=== PATIENT | male | born 1975 | race African-American/Black ===

== ENCOUNTER 2016-11-20 01:08 | Emergency (ER) | payer SELFPAY ==
[2016-11-20 01:32] VITALS: BP 128/81
--- NOTE | 2016-11-21 14:00 | EKG REPORT ---
SEVERITY:- ABNORMAL ECG - SINUS RHYTHM LEFT VENTRICULAR HYPERTROPHY NONSPECIFIC ST-T CHANGES- INFERIOR LEADS : Confirmed by: Avi Bennett MD 21-Nov-2016 13:59:16
== END 2016-11-20 04:33 | disposition left against medical advice (07) ==
LOC: ER 01:08
DX: Z53.21 Procedure and treatment not carried out due to patient leaving prior to being seen by health care provider (principal)
CPT/HCPCS: 93005; 93010

== ENCOUNTER 2016-12-05 18:18 | Emergency (ER) | payer MEDICAID ==
--- NOTE | 2016-12-05 18:59 | ER Document Report ---
ED Medical Screen (RME) - General Chief Complaint: Head Injury with LOC Stated Complaint: FALL HEAD PAIN Mode of Arrival: Wheelchair Information source: Patient, Relative Notes: This is a 41-year-old -[place] male who presents for complaint of head trauma and loss of consciousness. Patient and family state that he was outside playing catch with his son when he tripped and fell hitting the left side of his forehead against the concrete porch. Family reports a brief loss of consciousness. This occurred about 45 minutes ago. He has had no nausea and vomiting. However family states that he is acting abnormally and talking about "monkeys" and acting confused. He denies being on any blood thinners for about 6 months. Previously he was on blood thinners for PE. He is alert and conversant. He is oriented to person and place however he states the date is 2015. Pupils are equal round reactive to light bilaterally. I have greeted and performed a rapid initial assessment of this patient. A comprehensive ED assessment and evaluation of the patient, analysis of test results and completion of the medical decision making process will be conducted by additional ED providers. TRAVEL OUTSIDE OF THE [place] IN LAST 30 DAYS: No - Related Data Allergies/Adverse Reactions: aspirin [Aspirin] Allergy (Verified 04/09/14 22:26) codeine [Codeine] Allergy (Verified 04/09/14 22:26) Past Medical History Renal/ Medical History: Denies: Hx Peritoneal Dialysis Malignancy Medical History: Reports Hx Leukemia Psychiatric Medical History: Denies: Hx Depression - Immunizations Hx Diphtheria, Pertussis, Tetanus Vaccination: Yes Physical Exam - Vital signs Vitals: Temp Pulse Resp BP Pulse Ox 98.5 F 94 20 131/87 H 97 12/05/16 18:22 12/05/16 18:22 12/05/16 18:22 12/05/16 18:22 12/05/16 18:22 Course - Vital Signs Vital signs: Temp Pulse Resp BP Pulse Ox 98.5 F 94 20 131/87 H 97 12/05/16 18:22 12/05/16 18:22 12/05/16 18:22 12/05/16 18:22 12/05/16 18:22
[2016-12-05] MEDS ORDERED: ACETAMINOPHEN 325 MG TABLET PO ONE (19:40)
--- NOTE | 2016-12-05 19:43 | ER Document Report ---
ED Head/Face/Scalp Injury - General Chief Complaint: Head Injury with LOC Stated Complaint: FALL HEAD PAIN Time seen by provider: 19:20 Mode of Arrival: Wheelchair Notes: Patient is a 41-year-old male that comes emergency department for chief complaint of head injury, he states that he tried to catch a football and fell forward, hitting his head on a concrete step outside. He states he was knocked out, family states that when he awoke he was talking strangely about monkeys and seemed confused, patient was oriented by the time he reached triage, patient has had a CAT scan of the head by triage. Patient reports pain in the area where he hit his head with a mild headache, states he had nausea but this resolved, denies vomiting. Patient denies neck pain, back pain, chest pain, abdominal pain, or any other injuries. Patient states he is currently on low- dose metformin for type II diabetes, states he has been on blood thinners in the past for a pulmonary embolism but was stopped over 6 months ago. TRAVEL OUTSIDE OF THE [place] IN LAST 30 DAYS: No - Related Data Allergies/Adverse Reactions: aspirin [Aspirin] Allergy (Verified 04/09/14 22:26) codeine [Codeine] Allergy (Verified 04/09/14 22:26) Past Medical History - General Information source: Patient, Relative - Social History Smoking Status: Never Smoker Frequency of alcohol use: None Drug Abuse: None Lives with: Family Family History: Reviewed & Not Pertinent Endocrine Medical History: Reports: Hx Diabetes Mellitus Type 2 Renal/ Medical History: Denies: Hx Peritoneal Dialysis Malignancy Medical History: Reports Hx Leukemia Psychiatric Medical History: Denies: Hx Depression Surgical Hx: Negative - Immunizations Immunizations up to date: Yes Hx Diphtheria, Pertussis, Tetanus Vaccination: Yes Review of Systems - Review of Systems Constitutional: No symptoms reported EENT: No symptoms reported Cardiovascular: No symptoms reported Respiratory: No symptoms reported Gastrointestinal: No symptoms reported Genitourinary: No symptoms reported Male Genitourinary: No symptoms reported Musculoskeletal: See HPI Skin: No symptoms reported Hematologic/Lymphatic: No symptoms reported Neurological/Psychological: See HPI Physical Exam - Vital signs Vitals: Temp Pulse Resp BP Pulse Ox 98.5 F 94 20 131/87 H 97 12/05/16 18:22 12/05/16 18:22 12/05/16 18:22 12/05/16 18:22 12/05/16 18:22 Interpretation: Normal - General General appearance: Appears well, Alert In distress: None - Patient sitting up in the bed, well-appearing, alert - HEENT Head: Normocephalic, Other - Circular 2 x 2 centimeter hematoma on the left upper forehead near the hairline Eyes: Normal Conjunctiva: Normal Extraocular movements intact: Yes Eyelashes: Normal Pupils: PERRL Ears: Normal External canal: Normal Tympanic membrane: Normal Sinus: Normal Nasal: Normal Mouth/Lips: Normal Mucous membranes: Normal Pharynx: Normal Neck: Normal - Respiratory Respiratory status: No respiratory distress Chest status: Nontender Breath sounds: Normal. No: Decreased air movement, Wheezing Chest palpation: Normal - Cardiovascular Rhythm: Regular. No: Tachycardia Heart sounds: Normal auscultation, S1 appreciated, S2 appreciated Murmur: No - Abdominal Inspection: Normal Distension: No distension Bowel sounds: Normal Tenderness: Nontender Organomegaly: No organomegaly - Back Back: Normal, Nontender. No: Tender, Vertebra tenderness - No midline tenderness, no palpable tenderness over the back, no saddle anesthesia, moves all extremities without difficulty, normal distal neurovascular exam - Extremities General upper extremity: Normal inspection, Nontender, Normal color, Normal ROM , Normal temperature General lower extremity: Normal inspection, Nontender, Normal color, Normal ROM , Normal temperature, Normal weight bearing. 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 Patient has a hematoma over the left upper frontal area, no midline cervical tenderness, no neurological deficits, is alert and well-appearing. CAT scan of the head negative for any acute findings, shows some maxillary sinus disease, no evidence of intracranial hemorrhage or skull fracture. Patient with no sinus complaints. Patient reevaluated and remains unchanged in his examination except for some developed soreness in the left trapezius muscular area, still has normal spinal exam. He is requesting to go home. He is fully oriented, has no neurological deficits, has negative CAT scan of the head. I discussed in detail head injury precautions, postconcussive syndrome, return precautions, discussed this with both patient and family members, they state understanding and agreement. - Vital Signs Vital signs: Temp Pulse Resp BP Pulse Ox 98.5 F 89 18 116/80 97 12/05/16 18:22 12/05/16 21:48 12/05/16 21:48 12/05/16 21:48 12/05/16 18:22 Discharge - Discharge Clinical Impression: Head injury Qualifiers: Encounter type: initial encounter Qualified Code(s): S09.90XA - Unspecified injury of head, initial encounter Scalp hematoma Qualifiers: Encounter type: initial encounter Qualified Code(s): S00.03XA - Contusion of scalp, initial encounter Condition: Stable Disposition: HOME, SELF-CARE Additional Instructions: CAT scan shows no abnormalities. Neurological exam is normal now. Symptoms and injury to indicate he had a concussion, see postconcussive syndrome details below. Please monitor him and perform head injury precautions as listed below. You will likely develop some soreness, take the muscle relaxer if needed. Follow-up with primary care. Return to emergency department for any concerning symptoms. Head Injury Precautions At this point, there is no evidence that your head injury is serious. Observation is necessary, however. Take only clear liquids for the first few hours, unless told otherwise by the doctor. If no pain medication was prescribed, you may take acetaminophen according to the directions on the bottle. Do not take any medication that may alter your level of alertness (unless you've discussed it with the doctor first) . Limit activity for the first 24 hours. Bed rest is best. During the first 24 hours, check to see approximately every two to three hours that the patient is easily arousable, responds normally, and can perform common tasks such as walking without difficulty. Contact your doctor or go to the hospital if any of the following things occur: Persistent vomiting, difficulty in arousing the patient, worsening or continued headache, or failure to improve as expected. Head injuries can cause symptoms that persist for a few days or even a few weeks. Post-Concussion Syndrome Post-concussion syndrome often follows a mild head injury. Dizziness, mild nausea, mild headache, trouble concentrating, and a general sense of "not being right" may persist for a week or two. This is a frequent complication of concussion. However, if the symptoms worsen, or new symptoms develop, you should be re-examined by the physician. There is no specific cure for post-concussion syndrome. You can take mild pain medication such as ibuprofen or acetaminophen. While you should not drive if you are dizzy, you can get back to your regular activities as quickly as the symptoms will allow. And while vigorous exercise may worsen the headache, mild physical activity often is helpful. Sitting and thinking about your symptoms will worsen them. If difficulties continue, you may need referral for special therapy to help you regain full mental function. Call the physician if you are worsening, or if symptoms are still present in one week. Report any new symptoms immediately. Prescriptions: Methocarbamol [Robaxin 750 mg Tablet] 750 mg PO Q6 #20 tablet Forms: Return to Work Referrals: MICHAEL MCCORMACK, [Primary Care Provider] - Follow up as needed
[2016-12-05 21:50] VITALS: BP 116/80
== END 2016-12-05 21:47 | disposition home or self-care (01) ==
LOC: ER 18:18
DX: S09.90XA Unspecified injury of head, initial encounter (principal); S00.03XA Contusion of scalp, initial encounter; W18.30XA Fall on same level, unspecified, initial encounter; Y93.61 Activity, american tackle football; E11.9 Type 2 diabetes mellitus without complications; Z88.6 Allergy status to analgesic agent; Z79.01 Long term (current) use of anticoagulants; Z79.84 Long term (current) use of oral hypoglycemic drugs
CPT/HCPCS: 99283; 70450; J3490

== ENCOUNTER 2017-02-24 21:58 | Emergency (ER) | payer MEDICAID ==
[2017-02-24 22:50] LABS: ABSOLUTE BASOPHILS # (AUTO) 0.1 10^3/uL (0.0-0.2); ABSOLUTE EOSINOPHILS # (AUTO) 0.1 10^3/uL (0.0-0.6); ABSOLUTE LYMPHOCYTES (AUTO) 2.7 10^3/uL (0.5-4.7); ABSOLUTE MONOCYTES (AUTO) 0.5 10^3/uL (0.1-1.4); BASOPHILS % (AUTO) 0.8 % (0-2); EOSINOPHILS % (AUTO) 1.8 % (0-6); HEMATOCRIT 47.4 % (37.9-51.0); HEMOGLOBIN 15.3 g/dL (13.5-17.0); HGB HCT DIFFERENCE -1.5; LYMPHOCYTES % (AUTO) 42.3 % (13-45); MEAN CORPUSCULAR HEMOGLOBIN 29.1 pg (27.0-33.4); MEAN CORPUSCULAR HGB CONC 32.4 g/dL (32.0-36.0); MEAN CORPUSCULAR VOLUME 90 fl (80-97); RED BLOOD COUNT 5.27 10^6/uL (4.35-5.55); SEGMENTED NEUTROPHILS % (AUTO) 47.1 % (42-78); WHITE BLOOD COUNT 6.5 10^3/uL (4.0-10.5)
--- NOTE | 2017-02-24 22:59 | RADIOLOGY REPORT (SQ) ---
EXAM DESCRIPTION: CHEST PA/LAT COMPLETED DATE/TIME: 02/24/2017 10:47 pm REASON FOR STUDY: chest pain COMPARISON: 2013 TECHNIQUE: Frontal and lateral radiographic views of the chest acquired. NUMBER OF VIEWS: Two view. LIMITATIONS: None. FINDINGS: LUNGS AND PLEURA: No opacities, masses or pneumothorax. No pleural effusion. MEDIASTINUM AND HILAR STRUCTURES: No masses or contour abnormalities. HEART AND VASCULAR STRUCTURES: Heart normal size. No evidence for failure. BONES: No acute findings. HARDWARE: None in the chest. OTHER: No other significant finding. IMPRESSION: NO SIGNIFICANT RADIOGRAPHIC FINDING IN THE CHEST. TECHNICAL DOCUMENTATION: JOB ID: [id number] [employer]- All Rights Reserved
[2017-02-24 23:28] LABS: APPEARANCE,URINE CLEAR; BILIRUBIN,URINE NEGATIVE (NEGATIVE); GLUCOSE, URINE >=500 mg/dL (NEGATIVE); KETONES,URINE NEGATIVE (NEGATIVE); LEUKOCYTE ESTERASE,URINE NEGATIVE (NEGATIVE); NITRITE,URINE NEGATIVE (NEGATIVE); PROTEIN,URINE NEGATIVE (NEGATIVE); URINE SPECIFIC GRAVITY 1.031; UROBILINOGEN,URINE NEGATIVE mg/dL (<2.0)
[2017-02-25 00:01] LABS: ALANINE AMINOTRANSFERASE 31 U/L (21-72); ALBUMIN 3.7 g/dL (3.5-5.0); ALKALINE PHOSPHATASE 94 U/L (38-126); ANION GAP 10 (5-19); ASPARTATE AMINO TRANSFERASE 9 U/L (17-59); BILIRUBIN,DIRECT 0.3 mg/dL (0.0-0.4); BILIRUBIN,TOTAL 0.4 mg/dL (0.2-1.3); BLOOD UREA NITROGEN 14 mg/dL (7-20); CALCIUM 9.2 mg/dL (8.4-10.2); CARBON DIOXIDE 25 mmol/L (22-30); CHLORIDE 99 mmol/L (98-107); CREATININE RESULT 0.86 mg/dL (0.52-1.25); POTASSIUM 4.8 mmol/L (3.6-5.0); SODIUM 134.1 mmol/L (137-145); TOTAL PROTEIN 6.6 g/dL (6.3-8.2)
[2017-02-25 00:07] LABS: GLUCOSE 551 mg/dL (75-110)
[2017-02-25] MEDS ORDERED: INSULIN REG, HUMAN 100 UNIT/ML 3 ML VIAL (PYX) IV ONE (00:14)
[2017-02-25] MEDS ORDERED: NORMAL SALINE 1000 ML 1,000 ML IV ONE (00:15)
--- NOTE | 2017-02-25 00:17 | ER Document Report ---
ED General - General Chief Complaint: Flank Pain Stated Complaint: FLANK PAIN Time Seen by Provider: 02/24/17 23:48 Notes: Patient is a 41-year-old male with past medical history of insulin-dependent type 2 diabetes, prior history of a pulmonary embolus not currently on anticoagulation who presents with 4 hours of pleuritic chest pain. Does describe the pain as being located over his lower right ribs, worsened by deep inspiration. Pain is a severe, stabbing pain. Nothing improves the pain. Notes that movement also worsens the pain. States this feels similar to when he had a pulmonary embolus in the past. He has not seen his primary care doctor regarding today's concerns. He denies any associated shortness of breath , hemoptysis, or syncope. Also notes that he has not taken any of his medications today. He denies any anterior chest wall pain, focal abdominal pain dysuria or distinct CVA tenderness. TRAVEL OUTSIDE OF THE [place] IN LAST 30 DAYS: No - Related Data Allergies/Adverse Reactions: aspirin [Aspirin] Allergy (Verified 04/09/14 22:26) codeine [Codeine] Allergy (Verified 04/09/14 22:26) Past Medical History - General Information source: Patient - Social History Smoking Status: Former Smoker Frequency of alcohol use: None Drug Abuse: None Lives with: Spouse/Significant other Family History: Reviewed & Not Pertinent Patient has suicidal ideation: No Patient has homicidal ideation: No Endocrine Medical History: Reports: Hx Diabetes Mellitus Type 2 Renal/ Medical History: Denies: Hx Peritoneal Dialysis Malignancy Medical History: Reports Hx Leukemia Psychiatric Medical History: Denies: Hx Depression - Immunizations Immunizations up to date: Yes Hx Diphtheria, Pertussis, Tetanus Vaccination: Yes Review of Systems - Review of Systems Notes: Constitutional: Negative for fever. HENT: Negative for sore throat. Eyes: Negative for visual changes. Cardiovascular: Negative for chest pain. Respiratory: Negative for shortness of breath. Positive for pleuritic pain Gastrointestinal: Negative for abdominal pain, vomiting or diarrhea. Genitourinary: Negative for dysuria. Musculoskeletal: Negative for back pain. Skin: Negative for rash. Neurological: Negative for headaches, weakness or numbness. 10 point ROS negative except as marked above and in HPI. Physical Exam - Vital signs Vitals: Temp Pulse Resp BP Pulse Ox 98.2 F 85 24 H 146/85 H 98 02/24/17 22:19 02/24/17 22:19 02/24/17 22:19 02/24/17 22:19 02/24/17 22:19 Interpretation: Tachypneic Notes: PHYSICAL EXAMINATION: GENERAL: Well-appearing, well-nourished and in no acute distress. HEAD: Atraumatic, normocephalic. EYES: Pupils equal round and reactive to light, extraocular movements intact, sclera anicteric, conjunctiva are normal. ENT: nares patent, oropharynx clear without exudates. Moist mucous membranes. NECK: Normal range of motion, supple without lymphadenopathy LUNGS: Breath sounds clear to auscultation bilaterally and equal. No wheezes rales or rhonchi. HEART: Regular rate and rhythm without murmurs ABDOMEN: Soft, nontender, normoactive bowel sounds. No guarding, no rebound. No masses appreciated. EXTREMITIES: Normal range of motion, no pitting or edema. No cyanosis. NEUROLOGICAL: No focal neurological deficits. Moves all extremities spontaneously and on command. PSYCH: Normal mood, normal affect. SKIN: Warm, Dry, normal turgor, no rashes or lesions noted. Course - Re-evaluation Re-evalutation: 02/25/17 00:16 Patient presents with pleuritic left-sided chest pain without any significant tachycardia or shortness of breath. He does have a history of a pulmonary embolus in 2014 is currently off anticoagulation. Patient does not have any distinct left flank pain and his urinalysis unremarkable. Do not suspect an acute nephrolithiasis given his reported history. Patient does state "this is exactly when I had a PE in the past". Will proceed with CTA of the chest has patient's initial well score is greater than 5 and a d-dimer would not be sufficient to exclude a PE. Patient's also severely hyperglycemic without evidence of DKA or HH SM laboratories. Patient admits to very poor compliance with his insulin regimen. Will send hemoglobin A1c and administer 10 units of IV insulin as well as some IV fluids. 02/25/17 02:22 CT of the chest is normal without any evidence of acute pulmonary embolus. Patient pain is improved after receiving Toradol and a Lidoderm patch. Suspect likely musculoskeletal irritation based on exam and reproducible nature of the pain without any evidence of acute PE or aortic dissection on CTA. I discussed at length with the patient his elevated A1c and the need for glucose control as an outpatient. At this time will discharge with return precautions and follow- up recommendations. Verbal discharge instructions given a the bedside and opportunity for questions given. Medication warnings reviewed. Patient is in agreement with this plan and has verbalized understanding of return precautions and the need for primary care follow-up in the next 24-72 hours. - Vital Signs Vital signs: Temp Pulse Resp BP Pulse Ox 98.2 F 85 16 127/89 H 94 02/24/17 22:19 02/24/17 22:19 02/24/17 23:31 02/24/17 23:31 02/24/17 23:31 - Laboratory Result Diagrams: 02/24/17 22:40 02/24/17 23:40 Laboratory results interpreted by me: 02/24/17 02/24/17 02/24/17 22:40 22:40 23:10 Plt Count 126 L Sodium Glucose Hemoglobin A1c % 10.6 H AST Urine Glucose (UA) >=500 H Urine Blood SMALL H 02/24/17 23:40 Plt Count Sodium 134.1 L Glucose 551 H* Hemoglobin A1c % AST 9 L Urine Glucose (UA) Urine Blood - Diagnostic Test Radiology reviewed: Image reviewed, Reports reviewed Radiology results interpreted by me: 02/25/17 02:50 Chest x-ray: No acute infiltrate or pneumothorax - EKG Interpretation by Me Additional EKG results interpreted by me: 02/25/17 02:51 Normal sinus rhythm. Rate 69. No ST elevations or depressions. QTC is 386. Discharge - Discharge Clinical Impression: Pleurodynia, Chest wall pain, Hyperglycemia Condition: Good Disposition: HOME, SELF-CARE Additional Instructions: Your pain is likely related to the muscles of your chest wall. Your CT scan is normal today. For your pain you can use ibuprofen 600 mg every 6 hours as needed. You may also apply heat to the area and purchase topical lidocaine over -the-counter to apply to the area. Please return if you have worsening of this pain, shortness of breath, pass out, or begin coughing blood. You need to followup urgently with your primary care doctor as your blood sugars were dangerously high today. You did not have any evidence of a dangerous condition associated with these blood sugars at this time. However, it is very important that you get your blood sugars under control. Please take all of your medications exactly as directed. You should avoid foods that are high in carbohydrates and sugary foods. Losing weight will also help to better control your blood sugars. Please return to emergency department immediately if you develop weakness, persistent vomiting, confusion, or any other symptoms that are concerning to you. Referrals: MICHAEL MCCORMACK, DO [Primary Care Provider] - Follow up as needed
--- NOTE | 2017-02-25 01:11 | RADIOLOGY REPORT (SQ) ---
EXAM DESCRIPTION: CTA CHEST COMPLETED DATE/TIME: 02/25/2017 12:52 am REASON FOR STUDY: Chest pain. COMPARISON: Chest x-ray 02/24/2017. TECHNIQUE: CT scan of the chest performed using helical scanning technique with dynamic intravenous contrast injection. Images reviewed with lung, soft tissue and bone windows. Reconstructed coronal and sagittal MPR images reviewed. Additional 3 dimensional post-processing performed to develop Maximal Intensity Projection images (DC P). All images stored on PACS. All CT scanners at this facility use dose modulation, iterative reconstruction, and/or weight based d osing when appropriate to reduce radiation dose to as low as reasonably achievable (ALARA). [facility]: Dose Right [facility]: CareDose [facility]: Dose Right [facility]: Teradose 4D [facility]: Elixir [employer] CONTRAST TYPE AND DOSE: contrast/concentration: Isovue 370.00 mg/ml; Total Contrast Delivered: 81.0 ml; Total Saline Delivered: 110.1 ml RENAL FUNCTION: Creatinine 0.86 RADIATION DOSE: Up-to-date CT equipment and radiation dose reduction techniques were employed. CTDIv ol: 16.5 - 24.2 mGy. DLP: 965 mGy-cm. . LIMITATIONS: None. FINDINGS: LUNGS AND PLEURA: No consolidation, pneumothorax or pleural effusion. AORTA AND GREAT VESSELS: No thoracic aortic aneurysm. HEART: No pericardial effusion. PULMONARY ARTERIES: No emboli visualized in the main pulmonary arteries or the segmental branches. HILAR AND MEDIASTINAL STRUCTURES: No identified masses or abnormal nodes. HARDWARE: None in the chest. UPPER ABDOMEN: No significant findings. Limited exam. BONES: No acute findings. 3D MIPS: Confirm above findings. IMPRESSION: No pulmonary emboli. TECHNICAL DOCUMENTATION: JOB ID: [id number] [facility] Quality ID # [id number]: Final reports with documentation of one or more dose reduction techniques (e.g., Au tomated exposure control, adjustment of the mA and/or kV according to patient size, use of iterative reconstruction technique) 2010 [employer]- All Rights Reserved
[2017-02-25] MEDS ORDERED: LIDOCAINE 5% (700 MG) TRANSDERMAL ADH..PATCH TP ONE (02:19)
[2017-02-25] MEDS ORDERED: KETOROLAC TROMETHAMINE INJ/PF 30 MG/1 ML SDV IV ONE (02:21)
[2017-02-25 03:02] VITALS: BP 122/78
--- NOTE | 2017-02-25 07:18 | EKG REPORT ---
SEVERITY:- ABNORMAL ECG - SINUS RHYTHM LEFT VENTRICULAR HYPERTROPHY ST ELEV, PROBABLE NORMAL EARLY REPOL PATTERN : Confirmed by: Camila Roberts 25-Feb-2017 07:18:06
== END 2017-02-25 02:55 | disposition home or self-care (01) ==
LOC: ER 21:58
DX: E11.65 Type 2 diabetes mellitus with hyperglycemia (principal); R07.81 Pleurodynia; R07.89 Other chest pain; R10.9 Unspecified abdominal pain; Z79.4 Long term (current) use of insulin; Z87.891 Personal history of nicotine dependence
CPT/HCPCS: 93005; 99285; 96361; 96374; 36415; 82962; 85025; 80053; 81001; 83036; 71020; 71275; 93010; J1885; J3490; J1815; J7030

== ENCOUNTER 2017-04-23 16:00 | Emergency (ER) | payer OTHER, MEDICAID ==
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
[2017-04-23 18:25] VITALS: BP 119/75
== END 2017-04-23 18:25 | disposition home or self-care (01) ==
LOC: ER 16:00
DX: M54.9 Dorsalgia, unspecified (principal); M54.2 Cervicalgia; V86.04XA Driver of military vehicle injured in traffic accident, initial encounter; F17.210 Nicotine dependence, cigarettes, uncomplicated; E11.9 Type 2 diabetes mellitus without complications
CPT/HCPCS: 99283; 72125; L0120

== ENCOUNTER 2019-01-18 02:11 | Emergency (ER) | payer MEDICAID ==
[2019-01-18 02:18] VITALS: BP 148/89
== END 2019-01-18 03:07 | disposition left against medical advice (07) ==
LOC: ER 02:11
DX: Z53.21 Procedure and treatment not carried out due to patient leaving prior to being seen by health care provider (principal)

== ENCOUNTER 2019-01-18 11:00 | Emergency (ER) | payer OTHER ==
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
[2019-01-18] MEDS ORDERED: KETOROLAC TROMETHAMINE 60 MG/2 ML SDV IM ONE (12:28)
[2019-01-18] MEDS ORDERED: OXYCODONE HCL IR 5 MG TABLET PO ONE (12:28)
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
[2019-01-18 13:09] VITALS: BP 151/96
== END 2019-01-18 13:08 | disposition home or self-care (01) ==
LOC: ER 11:00
DX: S16.1XXA Strain of muscle, fascia and tendon at neck level, initial encounter (principal); S39.012A Strain of muscle, fascia and tendon of lower back, initial encounter; M54.2 Cervicalgia; V54.5XXA Driver of pick-up truck or van injured in collision with heavy transport vehicle or bus in traffic accident, initial encounter; M62.830 Muscle spasm of back; E11.9 Type 2 diabetes mellitus without complications; Z87.891 Personal history of nicotine dependence
CPT/HCPCS: 99284; 96372; 72110; 70450; 72125; J1885

== ENCOUNTER 2020-07-18 04:11 | Emergency (ER) | payer SELFPAY ==
[2020-07-18 04:59] LABS: ABSOLUTE EOSINOPHILS # (AUTO) 0.2 10^3/uL (0.0-0.6); ABSOLUTE LYMPHOCYTES (AUTO) 2.1 10^3/uL (0.5-4.7); ABSOLUTE MONOCYTES (AUTO) 0.7 10^3/uL (0.1-1.4); BASOPHILS % (AUTO) 0.8 % (0-2); EOSINOPHILS % (AUTO) 3.1 % (0-6); HEMATOCRIT 41.1 % (37.9-51.0); HEMOGLOBIN 13.9 g/dL (13.5-17.0); MEAN CORPUSCULAR HEMOGLOBIN 29.6 pg (27.0-33.4); MEAN CORPUSCULAR HGB CONC 33.7 g/dL (32.0-36.0); MEAN CORPUSCULAR VOLUME 88 fl (80-97); MONOCYTES % (AUTO) 11.6 % (3-13); PLATELET COUNT 129 10^3/uL (150-450); RED BLOOD COUNT 4.69 10^6/uL (4.35-5.55); RED CELL DISTRIBUTION WIDTH 13.2 % (11.5-14.0); SEGMENTED NEUTROPHILS % (AUTO) 49.5 % (42-78); TOTAL CELLS COUNTED % (AUTO) 100 %
[2020-07-18 05:28] LABS: ALBUMIN 3.8 g/dL (3.5-5.0); ALKALINE PHOSPHATASE 87 U/L (38-126); ANION GAP 7 (5-19); ASPARTATE AMINO TRANSFERASE 17 U/L (17-59); BILIRUBIN,DIRECT 0.2 mg/dL (0.0-0.4); BILIRUBIN,TOTAL 0.5 mg/dL (0.2-1.3); BLOOD UREA NITROGEN 16 mg/dL (7-20); CALCIUM 9.4 mg/dL (8.4-10.2); CARBON DIOXIDE 28 mmol/L (22-30); CHLORIDE 104 mmol/L (98-107); GLUCOSE 218 mg/dL (75-110); POTASSIUM 4.1 mmol/L (3.6-5.0); TOTAL PROTEIN 6.7 g/dL (6.3-8.2)
[2020-07-18 07:35] LABS: APPEARANCE,URINE CLEAR; BILIRUBIN,URINE NEGATIVE (NEGATIVE); COLOR,URINE YELLOW; GLUCOSE, URINE NEGATIVE (NEGATIVE); KETONES,URINE NEGATIVE (NEGATIVE); LEUKOCYTE ESTERASE,URINE NEGATIVE (NEGATIVE); NITRITE,URINE NEGATIVE (NEGATIVE); PROTEIN,URINE 100 mg/dL (NEGATIVE); URINE SPECIFIC GRAVITY 1.012; UROBILINOGEN,URINE NEGATIVE mg/dL (<2.0)
[2020-07-18] MEDS ORDERED: NORMAL SALINE 1000 ML 1,000 ML IV ONE (08:06)
--- NOTE | 2020-07-18 08:06 | EKG REPORT ---
SEVERITY:- ABNORMAL ECG - SINUS RHYTHM PROBABLE LEFT ATRIAL ABNORMALITY LEFT VENTRICULAR HYPERTROPHY ST ELEV, PROBABLE NORMAL EARLY REPOL PATTERN : Confirmed by: Camila Roberts 18-Jul-2020 08:05:29
[2020-07-18] MEDS ORDERED: ONDANSETRON HCL INJ/PF 4 MG/2 ML SDV IV ONE (08:29)
[2020-07-18] MEDS ORDERED: PANTOPRAZOLE SODIUM 40 MG VIAL IV ONE (08:29)
[2020-07-18 08:47] LABS: INTERNATIONAL RATION (INR) 0.93; PROTHROMBIN TIME 12.7 SEC (11.4-15.4)
[2020-07-18 08:48] LABS: PARTIAL THROMBOPLASTIN TIME 36.1 SEC (23.5-35.8)
[2020-07-18 09:01] LABS: D-DIMER < 0.27 ug/mL (0.00-0.50)
[2020-07-18 09:03] LABS: C-REACTIVE PROTEIN 17.5 mg/L (<10.0)
--- NOTE | 2020-07-18 10:53 | RADIOLOGY REPORT (SQ) ---
EXAM DESCRIPTION: CTA CHEST IMAGES COMPLETED DATE/TIME: 07/18/2020 10:39 am REASON FOR STUDY: hemoptysis COMPARISON: 2017 TECHNIQUE: CT scan of the chest performed using helical scanning technique with dynamic intravenous contrast injection. Images reviewed with lung, soft tissue and bone windows. Reconstructed coronal and sagittal MPR images reviewed. Additional 3 dimensional post-processing performed to develop Maximal Intensity Projection images (NH P). All images stored on PACS. All CT scanners at this facility use dose modulation, iterative reconstruction, and/or weight based d osing when appropriate to reduce radiation dose to as low as reasonably achievable (ALARA). [facility]: Dose Right [facility]: CareDose [facility]: Dose Right [facility]: Teradose 4D [facility]: [place] Mason CONTRAST TYPE AND DOSE: contrast/concentration: Isovue 350.00 mmol/ml; Total Contrast Delivered: 71. 0 ml; Total Saline Delivered: 59.1 ml Contrast bolus adequate for pulmonary arteries and aorta. RENAL FUNCTION: GFR > 60. RADIATION DOSE: CT Rad equipment meets quality standard of care and radiation dose reduction techniq ues were employed. CTDIvol: 9.9 - 25.4 mGy. DLP: 925 mGy-cm. . LIMITATIONS: None. FINDINGS: LUNGS AND PLEURA: Mild motion and dependent changes. Minimal patchy ground-glass opacitie s particularly in the left upper lobe, nonspecific. No solid nodules or consolidating pneumonia or p leural effusion. AORTA AND GREAT VESSELS: No aneurysm. Contrast bolus not optimized for the aorta. HEART: No pericardial effusion. No significant coronary artery calcifications. PULMONARY ARTERIES: No emboli visualized in the main pulmonary arteries or the segmental branches. HILAR AND MEDIASTINAL STRUCTURES: No identified masses or abnormal nodes. HARDWARE: None in the chest. UPPER ABDOMEN: Cholelithiasis. THYROID AND OTHER SOFT TISSUES: No masses. No adenopathy. BONES: No acute or significant finding. 3D MIPS: Confirm above findings. OTHER: No other significant finding. IMPRESSION: 1. No pulmonary embolus. No aortic aneurysm or dissection detected. 2. Mild patchy ground-glass opacities are nonspecific but may reflect atypical infection. COMMENT: Quality ID # [id number]: Final reports with documentation of one or more dose reduction techniques (e.g., Automated exposure control, adjustment of the mA and/or kV according to patient size, use of iterative reconstruction technique) TECHNICAL DOCUMENTATION: JOB ID: [id number] 2011 [employer]- All Rights Reserved Reading location - IP/workstation name: [email or web address]
[2020-07-18] MEDS ORDERED: CEFTRIAXONE 1 GM/D5W RTU 1 GM/50 ML RTUPB IV ONE (12:00)
--- NOTE | 2020-07-18 12:12 | RADIOLOGY REPORT (SQ) ---
EXAM DESCRIPTION: VENOUS BILATERAL LOWER IMAGES COMPLETED DATE/TIME: 07/18/2020 12:04 pm REASON FOR STUDY: hemoptysis/Prior PE COMPARISON: None. TECHNIQUE: Dynamic and static bullard scale and color images acquired of both lower extremity venous sy stems. Selected spectral images acquired with additional compression and augmentation maneuvers. Imag es stored on PACS. LIMITATIONS: None. FINDINGS: RIGHT LEG COMMON FEMORAL AND FEMORAL: Normal phasicity, compression and augmentation. No visualized echogenic m aterial on bullard scale. No defects on color images. POPLITEAL: Normal compression and augmentation. No visualized echogenic material on bullard scale. No de fects on color images. CALF VESSELS: Normal compression and augmentation. No visualized echogenic material on bullard scale. No defects on color image. GSV AND SSV: Normal compression. No visualized echogenic material on bullard scale. No defects on color images. ANY DEEP VENOUS INSUFFICIENCY: Not evaluated. ANY EVIDENCE OF POPLITEAL CYST: No. OTHER: No other significant finding. LEFT LEG COMMON FEMORAL AND FEMORAL: Normal phasicity, compression and augmentation. No visualized echogenic m aterial on bullard scale. No defects on color images. POPLITEAL: Normal compression and augmentation. No visualized echogenic material on bullard scale. No de fects on color images. CALF VESSELS: Normal compression and augmentation. No visualized echogenic material on bullard scale. No defects on color images. GSV AND SSV: Normal compression. No visualized echogenic material on bullard scale. No defects on color images. ANY DEEP VENOUS INSUFFICIENCY: Not evaluated. ANY EVIDENCE POPLITEAL CYST: No. OTHER: No other significant finding. IMPRESSION: 1. NO EVIDENCE DVT OR SVT IN EITHER LEG. TECHNICAL DOCUMENTATION: JOB ID: [id number] 2010 [employer]- All Rights Reserved Reading location - IP/workstation name: [email or web address]
--- NOTE | 2020-07-18 13:10 | ER Document Report ---
Entered by RODOLFO KRUGER SCRIBE 07/18/20 0834 Acting as scribe for:DASH CONNOR MD ED General - General Chief Complaint: GI Bleeding Stated Complaint: VOMITING BLOOD/LEFT SIDE CHEST PAIN Time Seen by Provider: 07/18/20 07:37 Primary Care Provider: MICHAEL MCCORMACK DO [Primary Care Provider] - Follow up as needed Mode of Arrival: Ambulatory Information source: Patient Notes: This 44 year old male patient with a history of PE, not currently on any blood thinners, presents to the ED today with complaints of an episode of hematemesis that occurred last night. Patient states that he felt like he was choking on something and when he coughed it tasted like blood. He reports that he then started coughing more and bright red blood was coming out of his nose and mouth which led to vomiting. He states that he felt a pain in the left rib area prior to this episode. Denies epistaxis, shortness of breath, or COVID concerns. TRAVEL OUTSIDE OF THE [place] IN LAST 30 DAYS: No - Related Data Allergies/Adverse Reactions: No Known Allergies Allergy (Verified 04/23/17 16:07) Home Medications: METFORMIN LISINOPRIL OXYCODONE Past Medical History - General Information source: Patient, [facility] Records - Social History Smoking Status: Current Every Day Smoker Smoking Education Provided: No Lives with: Spouse/Significant other Family History: Reviewed & Not Pertinent Patient has suicidal ideation: No Patient has homicidal ideation: No - Past Medical History Cardiac Medical History: Reports: Hx Hypertension, Hx Pulmonary Embolism - Not currently on blood thinners Endocrine Medical History: Reports: Hx Diabetes Mellitus Type 2 Malignancy Medical History: 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 denies: Nose discharge - epistaxis Cardiovascular: No symptoms reported Respiratory: See HPI, Cough, Hemoptysis. denies: Short of breath Gastrointestinal: See HPI, Blood in vomit Genitourinary: No symptoms reported Male Genitourinary: No symptoms reported Musculoskeletal: See HPI, Muscle pain Skin: No symptoms reported Hematologic/Lymphatic: No symptoms reported Neurological/Psychological: No symptoms reported -: Yes All other systems reviewed and negative Physical Exam - Vital signs Vitals: Temp Pulse Resp BP Pulse Ox 98.2 F 78 17 155/98 H 99 07/18/20 04:20 07/18/20 04:20 07/18/20 04:20 07/18/20 04:20 07/18/20 04:20 - HEENT Head: Normocephalic, Atraumatic Eyes: Normal Pupils: PERRL Nasal: Normal. No: Bloody discharge, Epistaxis Mouth/Lips: Normal Pharynx: No: Blood in hypopharynx Neck: Normal, Supple - Respiratory Respiratory status: No respiratory distress Chest status: Tender - Reproducible left anterior chest wall pain at the lower mid-clavicle line. No crepitus Breath sounds: Normal Chest palpation: Normal - Cardiovascular Rhythm: Regular Heart sounds: Normal auscultation Murmur: No Friction rub: No Gallop: None auscultated - Abdominal Inspection: Obese Distension: No distension Bowel sounds: Normal Tenderness: Nontender - Abdomen soft Organomegaly: No organomegaly - Back Back: Normal, Nontender - Extremities General upper extremity: Normal inspection General lower extremity: Normal inspection. No: Edema - Neurological Neuro grossly intact: Yes Orientation: AAOx4 Blanket Coma Scale Eye Opening: Spontaneous Alva Coma Scale Verbal: Oriented [place] Coma Scale Motor: Obeys Commands Blanket Coma Scale Total: 15 - Psychological Associated symptoms: Normal affect, Normal mood - Skin Skin Temperature: Warm Skin Moisture: Dry Skin Color: Normal Course - Re-evaluation Re-evalutation: 07/18/20 09:38 Patient states that he feels better after receiving Protonix and Zofran. There has not been any other episodes of vomiting. 07/18/20 12:59 Patient did have a nosebleed while in the department and expressed a clot of blood from his nostril and then he spit out blood from his posterior pharynx. Most likely patient has acute sinusitis with nosebleed. - Vital Signs Vital signs: Temp Pulse Resp BP Pulse Ox 98.2 F 78 17 149/93 H 98 07/18/20 04:20 07/18/20 04:20 07/18/20 08:32 07/18/20 08:32 07/18/20 08:32 07/18/20 13:01 Vital signs stable. - Laboratory Result Diagrams: 07/18/20 04:46 07/18/20 04:46 Laboratory results interpreted by me: 07/18/20 07/18/20 07/18/20 04:44 04:46 04:46 Plt Count 129 L APTT Glucose 218 H Creatine Kinase C-Reactive Protein Urine Protein 100 H Urine Blood SMALL H 07/18/20 07/18/20 08:16 08:16 Plt Count APTT 36.1 H Glucose Creatine Kinase 301 H C-Reactive Protein 17.5 H Urine Protein Urine Blood 07/18/20 13:0 07/18/20 13:00 C-reactive protein 17.5 CK 301. Glucose 218. - Diagnostic Test Radiology reviewed: Image reviewed, Reports reviewed Radiology results interpreted by me: 07/18/20 13:02 Chest/Abdomen CTA 07/18/20 08:05 IMPRESSION: 1. No pulmonary embolus. No aortic aneurysm or dissection detected. 2. Mild patchy ground-glass opacities are nonspecific but may reflect atypical infection. Venous Doppler Study 07/18/20 08:09 IMPRESSION: 1. NO EVIDENCE DVT OR SVT IN EITHER LEG. CT angiogram chest and abdomen shows no pulmonary embolus no aortic aneurysms or dissection mild patchy groundglass opacities otherwise very nonspecific. - EKG Interpretation by Me Additional EKG results interpreted by me: 07/18/20 13:03 Twelve-lead EKG shows normal sinus rhythm rate of 77 left ventricular hypertrophy noted early repolarization changes noted left axis deviation normal NC interval normal QRS interval normal QT interval no evidence for an askew STEMI. Discharge - Discharge Clinical Impression: Acute sinusitis, Epistaxis Condition: Stable Disposition: HOME, SELF-CARE Additional Instructions: Sinusitis You have sinusitis, an infection of the sinus cavities of the face. The sinuses are air-filled chambers which open into the inside of the nose. Bacteria and pus fill a sinus, causing pain, drainage, and fever. Sinusitis is treated with antibiotics. Often, expectorants (to thin the sinus mucous) or decongestants (to reduce swelling) are prescribed as well. Healing requires seven to 10 days. Avoid chemical fumes, pollens, dusts, and smoke (especially cigarette smoke). Keep the air humidified in your bedroom and work area and take plenty of liquids by mouth. This condition can be serious if the infection spreads. If your symptoms worsen, or if you develop severe headache, high fever, stiff neck, or a rash, you must call the doctor or return for re-evaluation. Most likely your nosebleed is related to sinusitis. You have been placed on antibiotics to treat your sinusitis as well as medicines for acid control in you r stomach. Prescriptions: Amoxicillin/Potassium Clav [Augmentin 875-125 Tablet] 1 tab PO BID #20 tab Omeprazole 40 mg PO DAILY #30 capsule. Ondansetron [Zofran Odt 4 mg Tablet] 1 - 2 tab PO Q4H PRN #15 tab.rapdis PRN Reason: For Nausea/Vomiting Referrals: MICHAEL MCCORMACK, [Primary Care Provider] - Follow up as needed I personally performed the services described in the documentation, reviewed and edited the documentation which was dictated to the scribe in my presence, and it accurately records my words and actions.
[2020-07-18 13:39] VITALS: BP 138/94
== END 2020-07-18 13:24 | disposition home or self-care (01) ==
LOC: ER 04:11
DX: J01.90 Acute sinusitis, unspecified (principal); R04.0 Epistaxis; I10 Essential (primary) hypertension; E11.9 Type 2 diabetes mellitus without complications; Z85.6 Personal history of leukemia; Z86.711 Personal history of pulmonary embolism; Z79.84 Long term (current) use of oral hypoglycemic drugs
CPT/HCPCS: 93005; 99285; 96361; 96365; 96375; 86900; 86901; 36415; 87040; 86850; 82550; 83605; 83690; 85025; 85610; 85730; 86140; 87077; 80053; 81001; 84484; 85379; 87150 ×26; 83880; 93970; 71275; 93010; C9113; J2405; J7030; J0696; 87186